=== PATIENT | female | born 1930 | race Caucasian/White ===

== ENCOUNTER → 2019-01-05 | Outpatient (CLI) | payer OTHER ==
[~2019-01-05] MED LIST: ACIDOPHILUS1 EAC3 PO; TENORETIC 100 T1 TAB; ZANTAC150 MG PO
== END | disposition home or self-care (01) ==
LOC: NUCLEAR 11:00
DX: I80.10 Phlebitis and thrombophlebitis of unspecified femoral vein (principal); I87.2 Venous insufficiency (chronic) (peripheral)

== ENCOUNTER 2019-05-10 15:36 | Inpatient (IN) | payer OTHER ==
[~2019-05-10] VITALS: Ht 157.5 cm; Wt 54.4 kg
== END 2019-06-09 18:18 | disposition home or self-care (01) | DRG 463 ==
LOC: ER 15:36 → ICU-2 05-11 13:19 → SEC-K 05-13 17:06 → MEDJ 05-13 19:26
PROVIDERS: ADMIT Specialist
PROC: 8E0ZXY6 Isolation (ICD-10-PCS; 2019-05-13)
PROC: 4A12X4Z Monitoring of Cardiac Electrical Activity, External Approach (ICD-10-PCS; 2019-05-13)
PROC: BW40ZZZ Ultrasonography of Abdomen (ICD-10-PCS; 2019-05-14)
PROC: BW4GZZZ Ultrasonography of Pelvic Region (ICD-10-PCS; 2019-05-14)
PROC: 0T9B70Z Drainage of Bladder with Drainage Device, Via Natural or Artificial Opening (ICD-10-PCS; 2019-05-14)
PROC: 0JB70ZZ Excision of Back Subcutaneous Tissue and Fascia, Open Approach (ICD-10-PCS; principal; 2019-05-15)
PROC: 02HV33Z Insertion of Infusion Device into Superior Vena Cava, Percutaneous Approach (ICD-10-PCS; 2019-05-19)
PROC: 30233N1 Transfusion of Nonautologous Red Blood Cells into Peripheral Vein, Percutaneous Approach (ICD-10-PCS; 2019-05-19)
DX: T79.6XXA Traumatic ischemia of muscle, initial encounter (principal); L89.154 Pressure ulcer of sacral region, stage 4; G92 Toxic encephalopathy; L03.312 Cellulitis of back [any part except buttock and flank]; N17.8 Other acute kidney failure; N39.0 Urinary tract infection, site not specified; I96 Gangrene, not elsewhere classified; J90 Pleural effusion, not elsewhere classified; G72.81 Critical illness myopathy; L03.116 Cellulitis of left lower limb; L03.115 Cellulitis of right lower limb; B37.89 Other sites of candidiasis; K92.1 Melena; D62 Acute posthemorrhagic anemia; N39.46 Mixed incontinence; I12.9 Hypertensive chronic kidney disease with stage 1 through stage 4 chronic kidney disease, or unspecified chronic kidney disease; N18.2 Chronic kidney disease, stage 2 (mild); R31.0 Gross hematuria; E86.0 Dehydration; E87.8 Other disorders of electrolyte and fluid balance, not elsewhere classified; T50.995A Adverse effect of other drugs, medicaments and biological substances, initial encounter; I83.11 Varicose veins of right lower extremity with inflammation; N81.11 Cystocele, midline; R55 Syncope and collapse; I11.9 Hypertensive heart disease without heart failure; D72.828 Other elevated white blood cell count; B96.1 Klebsiella pneumoniae [K. pneumoniae] as the cause of diseases classified elsewhere; B96.4 Proteus (mirabilis) (morganii) as the cause of diseases classified elsewhere; B95.2 Enterococcus as the cause of diseases classified elsewhere; L89.622 Pressure ulcer of left heel, stage 2; L89.612 Pressure ulcer of right heel, stage 2; Z88.2 Allergy status to sulfonamides; R41.0 Disorientation, unspecified